=== PATIENT | male | born 1945 | race Caucasian/White ===

== ENCOUNTER 2018-11-24 09:13 | Outpatient (CLI) | payer MEDICARE ==
--- NOTE | 2018-11-24 13:46 | NM ---
Radionucleotide bone scan HISTORY: Prostate cancer. Initial staging. FINDINGS: Homogeneous uptake of radiotracer throughout the skeleton. Mild degenerative changes of the shoulders, knees, and feet. Photopenic defects at the left knee consistent with prosthesis. Small focus of uptake at the left ethmoid air cells likely related to sinusitis. IMPRESSION: No scintigraphic evidence of skeletal metastasis.
== END 2018-11-24 09:14 | disposition home or self-care (01) ==
LOC: NM 09:13
PROVIDERS: ATTEND Urology
DX: C61 Malignant neoplasm of prostate (principal)
CPT/HCPCS: 78306; A9503

== ENCOUNTER 2018-11-30 09:17 | Outpatient (CLI) | payer MEDICARE ==
[2018-11-30 10:30] LABS: Estimated GFR-MDRD - POC Greater than 90
--- NOTE | 2018-11-30 12:03 | CT ---
CT ABDOMEN AND PELVIS WITH CONTRAST WITH MULTIPLANAR RECONSTRUCTION: INDICATIONS: Prostate cancer. Assess for metastasis. FINDINGS: The lung base is clear. The liver, spleen and pancreas are unremarkable. The stomach and duodenum are unremarkable. The adrenal glands and kidneys are unremarkable. No hydronephrosis or urinary calculus. The ureters a ppear normal. The urinary bladder is mildly distended and unremarkable. Small bowel loops appear normal. Colon unremarkable. Appendix appears normal. Aorta normal caliber. No adenopathy or free fluid. Images through the pelvis show mild prosthetic hypertrophy impinging on the floor of the bladder. Osseous windows show mild symmetric degenerative changes at both hips and mild degenerative changes i n the lumbar spine. No focal lytic or blastic lesion. IMPRESSION: Mild prostatic hypertrophy. No acute process. POS: OFF
== END 2018-11-30 09:18 | disposition home or self-care (01) ==
LOC: BICCT 09:17
PROVIDERS: ATTEND Radiology Radiation Oncology
DX: C61 Malignant neoplasm of prostate (principal); N40.0 Benign prostatic hyperplasia without lower urinary tract symptoms
CPT/HCPCS: 74177; 82565

== ENCOUNTER 2023-03-10 05:40 | Day surgery (SDC) | payer MEDICARE, OTHER ==
[2023-03-08 13:22] VITALS: BMI 30.4
[2023-03-10 06:45] LABS: Hematocrit 37.5 % (42.0-52.0)
[2023-03-10] MEDS ORDERED: Oxymetazoline HCl 0.05% (30 ML BOT) ONE ×2 (06:55→07:42)
[2023-03-10 07:06] LABS: Anion Gap 13 mmol/L (10-20); BUN (Urea Nitrogen) 14 mg/dL (8.4-25.7); Calc. Creatinine Clearance 132 mL/min (70-130); Calcium 9.7 mg/dL (7.8-10.44); Carbon Dioxide 24 mmol/L (23-31); Chloride 106 mmol/L (98-107); Estimated GFR 94; Glucose 105 mg/dL (83-110); Potassium 4.1 mmol/L (3.5-5.1); Sodium 139 mmol/L (136-145)
[2023-03-10] MEDS ORDERED: EPINEPHrine 1 MG/ML VIAL ONE (07:41)
[2023-03-10] MEDS ORDERED: Bacitracin Zinc Ointment 30 gm TUBE ONE (07:42)
[2023-03-10] MEDS ORDERED: Lidocaine 1% (PF) 30 ML VIAL ONE (07:42)
[2023-03-10] MEDS ORDERED: PROPOFOL 20 ML ONE (07:48)
[2023-03-10] MEDS ORDERED: fentaNYL PF 100 MCG/2 ML SYRINGE ONE (07:48)
[2023-03-10] MEDS ORDERED: ePHEDrine Sulfate 50 MG/10 ML VIAL ONE (08:12)
[2023-03-10] MEDS ORDERED: PHENYLEPHRINE-NS 100 MCG/ML 10 ML SYRINGE ONE (08:14)
[2023-03-10] MEDS ORDERED: Dexamethasone 20 MG/5 ML VIAL ONE (08:14)
[2023-03-10] MEDS ORDERED: Rocuronium Bromide 10 MG/ML (10ML VIAL) ONE (08:14)
[2023-03-10] MEDS ORDERED: Ondansetron PF 4 MG/2 ML Vial ONE (08:14)
[2023-03-10] MEDS ORDERED: SUGAMMADEX SODIUM 200 MG/2 ML VIAL ONE (08:32)
[2023-03-10] MEDS ORDERED: fentaNYL 50 mcg/mL 1 mL Vial ONE (09:10)
== END 2023-03-10 10:30 | disposition home or self-care (01) ==
LOC: SDC 05:40
PROVIDERS: ATTEND Specialist
PROC: 09BM4ZZ Excision of Nasal Septum, Percutaneous Endoscopic Approach (ICD-10-PCS; principal; 2023-03-10)
PROC: 09TL4ZZ Resection of Nasal Turbinate, Percutaneous Endoscopic Approach (ICD-10-PCS; 2023-03-10)
PROC: 0NSBXZZ Reposition Nasal Bone, External Approach (ICD-10-PCS; 2023-03-10)
DX: S02.2XXA Fracture of nasal bones, initial encounter for closed fracture (principal); J34.2 Deviated nasal septum; J34.3 Hypertrophy of nasal turbinates; I10 Essential (primary) hypertension; M19.90 Unspecified osteoarthritis, unspecified site; Z79.01 Long term (current) use of anticoagulants; Z79.899 Other long term (current) drug therapy; Z85.46 Personal history of malignant neoplasm of prostate; Z96.659 Presence of unspecified artificial knee joint; Z95.0 Presence of cardiac pacemaker; Z88.5 Allergy status to narcotic agent; Z88.1 Allergy status to other antibiotic agents; X58.XXXA Exposure to other specified factors, initial encounter
CPT/HCPCS: 21320; 30140; 30520; 80048; 85014; 85018; 93005; J0171; J3010; 93010; J2001; J2704